=== PATIENT | male | born 1975 | race Caucasian/White ===

== ENCOUNTER → 2017-02-23 | Outpatient (CLI) | payer SELFPAY ==
[2013-01-07 13:06] VITALS: BP 124/70
[~2017-02-23] MED LIST: NO HOME MEDICATIONS
== END ==
LOC: RAD 11:48
DX: Z03.89 Encounter for observation for other suspected diseases and conditions ruled out (principal)

== ENCOUNTER 2018-03-09 14:16 | Emergency (ER) | payer SELFPAY ==
[~2018-03-09] VITALS: Ht 167.6 cm; Wt 104.5 kg
[2018-03-09] MEDS ORDERED: VENLAFAXINE HY150 MG PO (14:24)
[2018-03-09 16:00] LABS: HEMOGLOBIN 14.9 g/dL (13.5-18.0); MEAN CELL VOLUME 82 fl (78-100); MEAN CORPUSCULAR HEMOGLOBIN 28 pg (27-31); MEAN CORPUSCULAR HGB CONC 35 g/dL (33-37); MEAN PLATELET VOLUME 10.9 fl (7.4-10.4); PLATELET COUNT 180 K/mm3 (130-400); RED BLOOD COUNT 5.25 M/mm3 (4.20-5.60); RED CELL DISTRIBUTION WIDTH 13.5 % (11.5-14.5); WHITE BLOOD COUNT 8.9 K/mm3 (4.8-10.8)
[2018-03-09 16:03] LABS: ALBUMIN 4.7 g/dL (3.5-5.0); CALCIUM 9.2 mg/dL (8.4-10.2); POTASSIUM 4.1 mmol/L (3.6-5.0); TOTAL BILIRUBIN 0.9 mg/dL (0.2-1.3); TOTAL PROTEIN 8.1 g/dL (6.3-8.2)
[2018-03-09 16:17] LABS: LYMPHOCYTE 22 % (20-51); MONOCYTE 8 % (3-10); NEUTROPHILS 69 % (42-75)
[2018-03-09] MEDS ORDERED: BACTRIM DS TAB1 EACH PO (16:47)
[2018-03-09 17:01] VITALS: BP 164/89
[2018-03-15] MEDS ORDERED: CLEOCIN HCL300 MG PO (13:16)
== END 2018-03-09 17:01 | disposition home or self-care (01) ==
LOC: ED 14:16
PROVIDERS: Nurse Practitioner Family
DX: L02.512 Cutaneous abscess of left hand (principal); L02.415 Cutaneous abscess of right lower limb; F17.210 Nicotine dependence, cigarettes, uncomplicated; Z79.899 Other long term (current) drug therapy

== ENCOUNTER → 2018-03-10 | Outpatient (CLI) | payer SELFPAY ==
[~2018-03-10] VITALS: Ht 167.6 cm; Wt 104.5 kg
[~2018-03-10] MED LIST changes: +BACTRIM DS TAB1 EACH PO; +CLEOCIN HCL300 MG PO; +VENLAFAXINE HY150 MG PO
[2018-03-10 11:29] VITALS: BP 144/78
== END ==
LOC: AMSURD 11:04
DX: Z48.00 Encounter for change or removal of nonsurgical wound dressing (principal)

== ENCOUNTER 2021-01-20 15:23 | Emergency (ER) | payer SELFPAY ==
[2021-01-20] MEDS ORDERED: LATUDA60 MG PO (15:35)
[2021-01-20 16:09] LABS: BASO # 0.08 (0.02-0.10); EOS # 0.08 (0.04-0.40); EOS % 0.7 % (0.0-4.0); HEMATOCRIT 45.2 % (42.0-52.0); HEMOGLOBIN 15.1 g/dL (13.5-18.0); LYMPH# 2.84 (1.50-4.00); MEAN CELL VOLUME 83 fl (78-100); MEAN CORPUSCULAR HEMOGLOBIN 28 pg (27-31); MEAN CORPUSCULAR HGB CONC 33 g/dL (33-37); MEAN PLATELET VOLUME 10.9 fl (7.4-10.4); MONO # 1.15 (0.20-0.80); NEU # 8.04 (1.40-6.50); PLATELET COUNT 283 K/mm3 (130-400); RED BLOOD COUNT 5.45 M/mm3 (4.20-5.60); WHITE BLOOD COUNT 12.2 K/mm3 (4.8-10.8)
[2021-01-20 16:18] LABS: ALBUMIN 4.5 g/dL (3.5-5.0); POTASSIUM 3.8 mmol/L (3.5-5.1); SODIUM 139 mmol/L (136-145)
[2021-01-20 16:19] LABS: CALCIUM 10.1 mg/dL (8.3-10.5)
[2021-01-20 16:20] LABS: GLUCOSE 114 mg/dL (75-110); TOTAL PROTEIN 8.1 g/dL (6.4-8.3)
[2021-01-20 16:21] LABS: CARBON DIOXIDE 21 mmol/L (22-29)
[2021-01-20 16:22] LABS: TOTAL BILIRUBIN 0.4 mg/dL (0.2-1.2)
[2021-01-20 16:26] LABS: AST-SGOT 29 U/L (5-34)
[2021-01-20 16:27] LABS: ALT/SGPT 43 U/L (0-55)
[2021-01-20 16:34] LABS: TROPONIN-I < 0.03 ng/mL (<0.030)
[2021-01-20 16:46] LABS: URINE APPEARANCE CLEAR; URINE BILIRUBIN NEGATIVE (NEGATIVE); URINE BLOOD NEGATIVE (NEGATIVE); URINE COLOR YELLOW; URINE GLUCOSE NEGATIVE (NEGATIVE); URINE KETONE NEGATIVE (NEGATIVE); URINE LEUKOCYTE ESTERASE NEGATIVE (NEGATIVE); URINE MUCUS PRESENT (NOT PRESENT); URINE NITRATE NEGATIVE (NEGATIVE); URINE PROTEIN(semi-quant) TRACE mg/dL (NEGATIVE); URINE UROBILINOGEN NORMAL (NORMAL)
[2021-01-20] MEDS ORDERED: CYCLOBENZAPRINE10 M1 PO (17:26)
[2021-01-20] MEDS ORDERED: METOPROLOL SUCC50 M1 PO (17:26)
[2021-01-20 17:55] VITALS: BP 134/92
== END 2021-01-20 17:35 | disposition home or self-care (01) ==
LOC: ED 15:23
PROVIDERS: Family Medicine
DX: M54.50 Low back pain, unspecified (principal); I10 Essential (primary) hypertension; F41.9 Anxiety disorder, unspecified; F32.A Depression, unspecified; Z79.899 Other long term (current) drug therapy
CPT/HCPCS: J0595

== ENCOUNTER 2021-04-05 11:26 | Emergency (ER) | payer SELFPAY ==
[~2021-04-05] VITALS: Ht 167.6 cm; Wt 103.1 kg
[~2021-04-05 11:26] MED LIST changes: +CYCLOBENZAPRINE10 M1 PO; +LATUDA60 MG PO; +METOPROLOL SUCC50 M1 PO
[2021-04-05 12:18] LABS: BASO # 0.02 K/mm3 (0.02-0.10); HEMATOCRIT 52.9 % (42.0-52.0); LYMPH# 1.15 K/mm3 (1.50-4.00); MEAN CELL VOLUME 82 fl (78-100); MEAN CORPUSCULAR HEMOGLOBIN 28 pg (27-31); MEAN CORPUSCULAR HGB CONC 34 g/dL (33-37); MEAN PLATELET VOLUME 12.1 fl (7.4-10.4); MONO # 0.55 K/mm3 (0.20-0.80); PLATELET COUNT 193 K/mm3 (130-400); RED BLOOD COUNT 6.47 M/mm3 (4.20-5.60); RED CELL DISTRIBUTION WIDTH 13.2 % (11.5-14.5); WHITE BLOOD COUNT 6.8 K/mm3 (4.8-10.8)
[2021-04-05 12:34] LABS: ALBUMIN 4.6 g/dL (3.5-5.0); POTASSIUM 4.3 mmol/L (3.5-5.1)
[2021-04-05 12:36] LABS: CALCIUM 9.3 mg/dL (8.3-10.5)
[2021-04-05 12:37] LABS: TOTAL PROTEIN 8.9 g/dL (6.4-8.3)
[2021-04-05 12:39] LABS: TOTAL BILIRUBIN 0.8 mg/dL (0.2-1.2)
[2021-04-05] MEDS ORDERED: ZOFRAN ODT4 MG PO (13:55)
[2021-04-05 14:41] VITALS: BP 120/81
== END 2021-04-05 15:03 | disposition home or self-care (01) ==
LOC: ED 11:26
PROVIDERS: Physician Assistant
DX: R11.2 Nausea with vomiting, unspecified (principal); E86.0 Dehydration; I10 Essential (primary) hypertension; F32.A Depression, unspecified; F41.9 Anxiety disorder, unspecified; Z79.899 Other long term (current) drug therapy
CPT/HCPCS: J2405; J7030

== ENCOUNTER 2021-06-03 15:28 | Emergency (ER) | payer SELFPAY ==
[~2021-06-03 15:28] MED LIST changes: +ALLOPURINOL300 M1 PO; +AMOXICILLIN 50500 MG PO; +PREDNISONE20 MG PO; +TOPROL XL 25MG25 MG PO; +ZOFRAN ODT4 MG PO
[2021-06-03 16:05] LABS: BASO # 0.07 K/mm3 (0.02-0.10); EOS # 0.06 K/mm3 (0.04-0.40); EOS % 0.8 % (0.0-4.0); HEMATOCRIT 45.3 % (42.0-52.0); HEMOGLOBIN 14.8 g/dL (13.5-18.0); LYMPH# 1.44 K/mm3 (1.50-4.00); MEAN CELL VOLUME 85 fl (78-100); MEAN CORPUSCULAR HEMOGLOBIN 28 pg (27-31); MEAN CORPUSCULAR HGB CONC 33 g/dL (33-37); MEAN PLATELET VOLUME 10.1 fl (7.4-10.4); MONO # 0.68 K/mm3 (0.20-0.80); NEU # 5.68 K/mm3 (1.40-6.50); PLATELET COUNT 239 K/mm3 (130-400); RED BLOOD COUNT 5.35 M/mm3 (4.20-5.60)
[2021-06-03 16:19] LABS: ALBUMIN 4.4 g/dL (3.5-5.0); POTASSIUM 4.3 mmol/L (3.5-5.1); SODIUM 138 mmol/L (136-145)
[2021-06-03 16:21] LABS: GLUCOSE 100 mg/dL (75-110)
[2021-06-03 16:22] LABS: CARBON DIOXIDE 23 mmol/L (22-29)
[2021-06-03 16:23] LABS: TOTAL BILIRUBIN 0.5 mg/dL (0.2-1.2)
[2021-06-03 16:26] LABS: AST-SGOT 50 U/L (5-34)
[2021-06-03 16:28] LABS: ALT/SGPT 111 U/L (0-55)
[2021-06-03 16:39] LABS: TROPONIN-I < 0.030 ng/mL (<0.030)
[2021-06-03 16:54] VITALS: BP 124/87
== END 2021-06-03 16:52 | disposition home or self-care (01) ==
LOC: ED 15:28
PROVIDERS: Nurse Practitioner
DX: I10 Essential (primary) hypertension (principal); R61 Generalized hyperhidrosis; M10.9 Gout, unspecified; F32.A Depression, unspecified; F41.9 Anxiety disorder, unspecified; Z87.891 Personal history of nicotine dependence; Z79.899 Other long term (current) drug therapy

== ENCOUNTER → 2021-08-23 | Outpatient (CLI) | payer SELFPAY ==
[~2021-08-23] MED LIST changes: +ACETAMINOPHEN-H1 TA1 PO; +LOPRESSOR 225 MG/TAB PO
[2021-08-23 15:20] LABS: BASO # 0.04 K/mm3 (0.02-0.10); EOS # 0.11 K/mm3 (0.04-0.40); HEMATOCRIT 49.8 % (42.0-52.0); HEMOGLOBIN 16.6 g/dL (13.5-18.0); MEAN CELL VOLUME 83 fl (78-100); MEAN CORPUSCULAR HEMOGLOBIN 28 pg (27-31); MEAN CORPUSCULAR HGB CONC 33 g/dL (33-37); MEAN PLATELET VOLUME 10.9 fl (7.4-10.4); NEU # 6.81 K/mm3 (1.40-6.50); PLATELET COUNT 403 K/mm3 (130-400); RED CELL DISTRIBUTION WIDTH 13.3 % (11.5-14.5)
[2021-08-23 15:31] LABS: ALBUMIN 4.8 g/dL (3.5-5.0)
[2021-08-23 15:32] LABS: CALCIUM 10.4 mg/dL (8.3-10.5)
[2021-08-23 15:33] LABS: TOTAL PROTEIN 8.6 g/dL (6.4-8.3)
[2021-08-23 15:35] LABS: TOTAL BILIRUBIN 0.9 mg/dL (0.2-1.2)
== END ==
LOC: LAB 14:56
PROVIDERS: Physician Assistant
DX: Z13.220 Encounter for screening for lipoid disorders (principal); A08.4 Viral intestinal infection, unspecified; I10 Essential (primary) hypertension; F12.90 Cannabis use, unspecified, uncomplicated; G89.29 Other chronic pain

== ENCOUNTER → 2023-03-23 | Outpatient (CLI) | payer OTHER | LOC: LAB 10:59 | DX: Z20.822 Contact with and (suspected) exposure to COVID-19 (principal) ==

== ENCOUNTER 2023-03-29 12:05 | Emergency (ER) | payer OTHER ==
[~2023-03-29] VITALS: Ht 170.2 cm; Wt 95.4 kg
[2023-03-29 12:12] VITALS: BP 137/92
== END 2023-03-29 13:05 | disposition home or self-care (01) ==
LOC: ED 12:05
DX: J06.9 Acute upper respiratory infection, unspecified (principal); H65.02 Acute serous otitis media, left ear; H61.22 Impacted cerumen, left ear

== ENCOUNTER → 2023-07-08 | Outpatient (CLI) | payer SELFPAY | LOC: LAB 15:17 | DX: Z20.2 Contact with and (suspected) exposure to infections with a predominantly sexual mode of transmission (principal) ==

== ENCOUNTER → 2024-03-14 | Outpatient (CLI) | payer SELFPAY | LOC: LAB 14:32 | DX: G89.29 Other chronic pain (principal) ==